=== PATIENT | female | born 1995 | race American Indian/Alaskan Native ===

== ENCOUNTER 2020-04-21 23:09 | Outpatient (CLI) | payer MEDICAID ==
[2020-04-22] MEDS ORDERED: LACTATED RINGERS 1,000 ML IV ONE (01:01)
[2020-04-22 01:03] VITALS: BP 110/65
== END 2020-04-22 02:25 | disposition home or self-care (01) ==
LOC: TRG 23:09 → APU 23:10 → TRG 04-22 02:25
PROVIDERS: ATTEND Obstetrics & Gynecology
DX: O62.9 Abnormality of forces of labor, unspecified (principal); O99.323 Drug use complicating pregnancy, third trimester; F12.90 Cannabis use, unspecified, uncomplicated; Z3A.37 37 weeks gestation of pregnancy; Z87.891 Personal history of nicotine dependence
CPT/HCPCS: 59025; 96360; J7120

== ENCOUNTER 2020-05-05 19:00 | Outpatient (CLI) | payer MEDICAID ==
[2020-05-05 19:30] VITALS: BP 113/61
== END 2020-05-05 21:20 | disposition home or self-care (01) ==
LOC: TRG 19:00 → APU 19:02 → TRG 21:20
PROVIDERS: ATTEND Obstetrics & Gynecology
DX: O47.1 False labor at or after 37 completed weeks of gestation (principal); Z3A.39 39 weeks gestation of pregnancy
CPT/HCPCS: 59025